=== PATIENT | female | born 1970 | race Caucasian/White ===

== ENCOUNTER 2016-11-18 14:04 | Emergency (ER) | payer OTHER ==
[~2016-11-18] VITALS: Ht 157.5 cm; Wt 82.5 kg
[~2016-11-18 14:04] MED LIST: AMLO-218 PO; BACTDS PO; FERR240T9 PO; METO-448 PO
[2016-11-18 14:08] VITALS: Ht 157.5 cm; Wt 82.5 kg
[2016-11-18] MEDS ORDERED: ACETAMINOPHEN 500 MG TAB PO STA (14:36)
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
[2016-11-18] MEDS ORDERED: NAPR-260 PO (16:23)
[2016-11-18] MEDS ORDERED: TRAM50TA2 PO (16:23)
[2016-11-18] MEDS ORDERED: CYCL-319 PO (16:23)
[2016-11-18 16:30] VITALS: BP 128/68; PULSE 77; RESP 18; TEMP 98
== END 2016-11-18 17:25 | disposition home or self-care (01) ==
LOC: FTE 14:04
DX: S89.91XA Unspecified injury of right lower leg, initial encounter (principal); V49.40XA Driver injured in collision with unspecified motor vehicles in traffic accident, initial encounter
CPT/HCPCS: 72040; 72100; 73550; 73590; Z7610

== ENCOUNTER 2017-08-01 00:35 | Emergency (ER) | END 2017-08-01 05:04 | disposition home or self-care (01) ==

== ENCOUNTER 2017-08-14 11:14 | Emergency (ER) | END 2017-08-14 15:15 | disposition home or self-care (01) ==

== ENCOUNTER 2018-02-22 14:44 | Emergency (ER) | END 2018-02-22 18:15 | disposition home or self-care (01) ==

== ENCOUNTER 2019-01-12 13:03 | Inpatient (IN) | payer OTHER ==
[~2019-01-12] VITALS: Ht 165.1 cm; Wt 65.0 kg
[~2019-01-12 13:03] MED LIST changes: +CIPR500T4 PO; +CYCL10TA7 PO; +HYDR-4011 PO; +NAPR-985 PO; +ONDA4TAB14 PO; +ONDA8TAB14 PO; +PRED20TA PO; +TRAM50TA2 PO
[2019-01-12] MEDS ORDERED: ONDANSETRON 4 MG INJ IV PRN (15:00)
[2019-01-12] MEDS ORDERED: ACETAMINOPHEN 325 MG TAB PO PRN (15:00)
[2019-01-12] MEDS ORDERED: NACL 0.9% 3 ML SYG IV SCH (15:00)
[2019-01-12] MEDS: SOD CHLORIDE 0.9% 1,000 ML IV SCH (15:05)
[2019-01-12] MEDS ORDERED: ONDANSETRON 4 MG INJ IV STA (15:16)
[2019-01-12 18:20] VITALS: Ht 165.1 cm; Wt 65.0 kg
[2019-01-12 18:24] VITALS: BP 149/75; PULSE 88; RESP 17
[2019-01-12 19:55] VITALS: BP 140/76; PULSE 92; RESP 20
[2019-01-12] MEDS ORDERED: LORAZEPAM 2 MG INJ IV ONE (23:00)
[2019-01-13] MEDS: SOD CHLORIDE 0.9% 1,000 ML IV SCH ×2 (00:34→12:46)
[2019-01-13 03:07] VITALS: BP 126/72; PULSE 88; RESP 20
[2019-01-13] MEDS: PANTOPRAZOLE 40 MG INJ IV SCH (06:36)
[2019-01-13 07:39] VITALS: BP 146/83; PULSE 86; RESP 18
[2019-01-13] MEDS ORDERED: IOHEXOL 300MG/ML 150 ML BTL ONE (09:02)
[2019-01-13 16:54] VITALS: BP 147/73; PULSE 85; RESP 18
[2019-01-13 19:15] VITALS: BP 126/81; PULSE 98; RESP 20
[2019-01-14 02:20] VITALS: BP 120/76; PULSE 86; RESP 20
[2019-01-14] MEDS: PANTOPRAZOLE 40 MG INJ IV SCH (05:22)
[2019-01-14 07:38] VITALS: BP 111/67; PULSE 78; RESP 18
== END 2019-01-14 11:30 | disposition home or self-care (01) | DRG 390 ==
LOC: E/R 13:03 → SUATTDRO 14:02 → MS1 14:07
PROVIDERS: ADMIT Internal Medicine; ATTEND Internal Medicine
DX: K56.609 Unspecified intestinal obstruction, unspecified as to partial versus complete obstruction (principal); I10 Essential (primary) hypertension; K21.9 Gastro-esophageal reflux disease without esophagitis; R11.2 Nausea with vomiting, unspecified; Z85.41 Personal history of malignant neoplasm of cervix uteri; Z90.710 Acquired absence of both cervix and uterus
CPT/HCPCS: 74250; 80053; 83036; 83735; 84100; 84443; 85025; C9113; J2060; J2405; J7030; Q9967